=== PATIENT | male | born 1965 | race Caucasian/White ===

== ENCOUNTER 2016-09-03 13:10 | Observation (INO) | payer BC ==
[2016-09-03] MEDS ORDERED: Sodium Chloride 0.9% 10 ML Syringe FLUSH PRN (13:24)
[2016-09-03] MEDS ORDERED: Sodium Chloride 0.9% 1,000 ML IV ONE (13:24)
[2016-09-03] MEDS ORDERED: Sodium Chloride 0.9% 2.5 ML Syringe FLUSH PRN (13:24)
[2016-09-03] MEDS ORDERED: Pantoprazole 40 MG Vial IVPUSH ONE (13:24)
--- NOTE | 2016-09-03 13:27 | EDM.PDOC ---
ED HISTORY OF PRESENT ILLNESS - General Chief Complaint: Cardiovascular Problem Stated Complaint: HEART ISSUES/DIZZINESS Time Seen by Provider: 09/03/16 13:15 - History of Present Illness INITIAL COMMENTS - FREE TEXT/NARRATIVE: HISTORY AND PHYSICAL: History of present illness: The patient is a 51-year-old male with a history of hypertension hypercholesterolemia who had a angioplasty and stent June 15, 2016 and has since followed up with at [facility] and is currently on Effient and presents with complaints of right shoulder pain and has been on and off for several months and lightheadedness that started yesterday. The patient states he is not here for his shoulder/right upper chest pain he is here for the lightheadedness because he has felt like he wanted to pass out. He states it comes and goes and started yesterday afternoon. He has no chest pain with or abdominal pain cough runny nose shortness of breath and has been eating and drinking normally. The patient's says that today he had an episode where he got so lightheaded that he fell to the ground but did not pass out or black out and the patient denies any pain or trauma from that episode. He denies any head neck or back pain. According to the he takes a handful of Tums every day But he is not been evaluated from a GI perspective. The patient does tell me that he had 3 tarry pasty stools yesterday without blood but he is never had those before and did not have that the day before. The patient that was drained home that he uses as needed for his typical chest pain which is midsternal but he has not used that for a week. He does not currently have chest pain like his typical anginal chest pain. Patient denies any abdominal pain or nausea at this time and has no back pain Review of systems: As per history of present illness and below otherwise all systems reviewed and negative. Past medical history: As per history of present illness and as reviewed below otherwise noncontributory. Surgical history: As per history of present illness and as reviewed below otherwise noncontributory. Social history: No reported history of drug or alcohol abuse. Family history: As per history of present illness and as reviewed below otherwise noncontributory. Physical exam: General: Well-developed well-nourished male who is not toxic speaking clearly and easily in ED and vital signs have been reviewed by me JJ: Atraumatic, normocephalic, pupils reactive, negative for conjunctival pallor or scleral icterus, mucous membranes moist, throat clear, neck supple, nontender, trachea midline. Lungs: Clear to auscultation, breath sounds equal bilaterally, chest nontender. Heart: S1S2, regular, negative for clicks, rubs, or JVD. Abdomen: Soft, nondistended, nontender. Negative for masses or hepatosplenomegaly. Negative for costovertebral tenderness. Pelvis: Stable nontender. Genitourinary: Deferred. Rectal: Normal tone no masses stool is black and tarry in the vault and as right leaf heme positive Extremities: Atraumatic, negative for cords or calf pain. Neurovascular unremarkable. Neuro: Awake, alert, oriented. Cranial nerves II through XII unremarkable. Cerebellum unremarkable. Motor and sensory unremarkable throughout. Exam nonfocal. Diagnostics: EKG CBC CMP INR type and screen troponin chest x-ray Therapeutics: IV O2 monitor IV fluids Protonix bolus and drip 1225: This case was discussed with Dr. Castro and Dr. Castillo and they've accepted the patient for admission 1445: I discussed with the patient and at bedside all testing results and care plan for a Protonix drip and admission to the hospital and they are agreeable. Patient overall looks improved and feels better Impression: Upper GI bleed with history of Effient use, recent PTCA with stent [place] stable Definitive disposition and diagnosis as appropriate pending reevaluation and review of above. - Related Data Allergies/ADRs: Allergies Allergy/AdvReac Type Severity Reaction Status Date / Time No Known Allergies Allergy Verified 09/03/16 13:23 Home Meds: Home Meds Aspirin 1 tab PO DAILY 09/03/16 [History] Lisinopril 1 tab PO DAILY 09/03/16 [History] Metoprolol Succinate [Toprol XL] 1 tab PO DAILY 09/03/16 [History] Nitroglycerin [Nitrostat] 1 tab SL ASDIRECTED 09/03/16 [History] Prasugrel HCl [Effient] 1 tab PO DAILY 09/03/16 [History] atorvaSTATin [Lipitor] 1 tab PO DAILY 09/03/16 [History] Past Medical History Cardiovascular History: Reports: Hypertension - Past Surgical History Musculoskeletal Surgical History: Reports: Other (see below) Other Musculoskeletal Surgeries/Procedures:: bicep repair Social & Family History - Family History Family Medical History: Noncontributory - Tobacco Use Smoking Status *Q: Former Smoker Years of Tobacco use: 20 Packs/Tins Daily: 1 - Alcohol Use Days Per Week of Alcohol Use: 1 Number of Drinks Per Day: 6 Total Drinks Per Week: 6 - Recreational Drug Use Recreational Drug Use: No Drug Use in Last 12 Months: No ED ROS GENERAL - Review of Systems Review Of Systems: ROS reveals no pertinent complaints other than HPI. ED EXAM, GENERAL - Physical Exam Exam: See Below (See dictation) Course - Vital Signs Last Recorded V/S: Last Vital Signs Temp 36.9 C 09/03/16 13:20 Pulse 92 09/03/16 14:20 Resp 16 09/03/16 14:20 BP 104/65 09/03/16 14:20 Pulse Ox 97 09/03/16 14:20 - Orders/Labs/Meds Orders: Active Orders 24 hr Category Date Time Status Patient Status [ADT] Stat ADT 09/03/16 14:44 Ordered Cardiac Monitoring [RC] . DIRECTED Care 09/03/16 13:23 Active EKG Documentation Completion [RC] STAT Care 09/03/16 13:23 Active Fecal Occult Blood Collection [RC] ASDIRECTED Care 09/03/16 14:15 Active Oxygen Therapy, ED [RC] ASDIRECTED Care 09/03/16 13:23 Active Pulse Oximetry [RC] ASDIRECTED Care 09/03/16 13:23 Active Pantoprazole [Protonix IV] 80 mg Med 09/03/16 13:30 Active Sodium Chloride 0.9% [Normal Saline] 100 ml IV .Continuous Sodium Chloride 0.9% [Saline Flush] Med 09/03/16 13:24 Active 10 ml FLUSH ASDIRECTED PRN Sodium Chloride 0.9% [Saline Flush] Med 09/03/16 13:24 Active 2.5 ml FLUSH ASDIRECTED PRN Saline Lock Insert [OM.PC] Stat Oth 09/03/16 13:23 Ordered Medication Orders Pantoprazole Sodium 80 mg/ (Sodium Chloride) 100 mls @ 10 mls/hr IV .Continuous ULISSES Last Admin: 09/03/16 14:26 Dose: 10 mls/hr Sodium Chloride (Saline Flush) 10 ml FLUSH ASDIRECTED PRN PRN Reason: Keep Vein Open Sodium Chloride (Saline Flush) 2.5 ml FLUSH ASDIRECTED PRN PRN Reason: Keep Vein Open Labs: Laboratory Tests 09/03/16 09/03/16 09/03/16 Range/Units 13:35 13:35 13:35 WBC 7.74 (4.0-11.0) K/uL RBC 4.01 L (4.50-5.90) M/uL Hgb 12.1 L (13.0-17.0) g/dL Hct 35.1 L (38.0-50.0) % MCV 87.5 (80.0-98.0) fL MCH 30.2 (27.0-32.0) pg MCHC 34.5 (31.0-37.0) g/dL RDW Std Deviation 41.5 (28.0-62.0) fl RDW Coeff of David 13 (11.0-15.0) % Plt Count 233 (150-400) K/uL MPV 9.50 (7.40-12.00) fL Neut % (Auto) 57.9 (48.0-80.0) % Lymph % (Auto) 33.6 (16.0-40.0) % [place] % (Auto) 5.2 (0.0-15.0) % Eos % (Auto) 3.0 (0.0-7.0) % Baso % (Auto) 0.3 (0.0-1.5) % Neut # 4.5 (1.4-5.7) K/uL Lymph # 2.6 H (0.6-2.4) K/uL [place] # 0.4 (0.0-0.8) K/uL Eos # 0.2 (0.0-0.7) K/uL Baso # 0.0 (0.0-0.1) K/uL Nucleated RBC % 0.0 /100WBC Nucleated RBCs # 0 K/uL INR 0.98 (0.86-1.11) Sodium 139 (136-146) mmol/L Potassium 4.5 (3.5-5.1) mmol/L Chloride 108 (98-110) mmol/L Carbon Dioxide 23 (21-31) mmol/L BUN 39 H (6.0-23.0) mg/dL Creatinine 1.0 (0.6-1.5) mg/dL Est Cr Clr Drug Dosing 93.77 mL/min Estimated GFR (MDRD) > 60.0 ml/min Glucose 101 (60-110) mg/dL Calcium 9.1 (8.8-10.8) mg/dL Total Bilirubin 1.0 (0.1-1.5) mg/dL AST 20 (5-40) IU/L ALT 37 (8-54) IU/L Alkaline Phosphatase 66 (40-150) Troponin I (0.0-0.29) NG/ML Total Protein 6.9 (6.0-8.0) g/dL Albumin 3.9 (3.5-5.0) g/dL Globulin 3.0 (2.0-3.5) g/dL Albumin/Globulin Ratio 1.3 (1.3-2.8) Blood Type Antibody Screen 09/03/16 09/03/16 Range/Units 13:35 13:35 WBC (4.0-11.0) K/uL RBC (4.50-5.90) M/uL Hgb (13.0-17.0) g/dL Hct (38.0-50.0) % MCV (80.0-98.0) fL MCH (27.0-32.0) pg MCHC (31.0-37.0) g/dL RDW Std Deviation (28.0-62.0) fl RDW Coeff of David (11.0-15.0) % Plt Count (150-400) K/uL MPV (7.40-12.00) fL Neut % (Auto) (48.0-80.0) % Lymph % (Auto) (16.0-40.0) % [place] % (Auto) (0.0-15.0) % Eos % (Auto) (0.0-7.0) % Baso % (Auto) (0.0-1.5) % Neut # (1.4-5.7) K/uL Lymph # (0.6-2.4) K/uL [place] # (0.0-0.8) K/uL Eos # (0.0-0.7) K/uL Baso # (0.0-0.1) K/uL Nucleated RBC % /100WBC Nucleated RBCs # K/uL INR (0.86-1.11) Sodium (136-146) mmol/L Potassium (3.5-5.1) mmol/L Chloride (98-110) mmol/L Carbon Dioxide (21-31) mmol/L BUN (6.0-23.0) mg/dL Creatinine (0.6-1.5) mg/dL Est Cr Clr Drug Dosing mL/min Estimated GFR (MDRD) ml/min Glucose (60-110) mg/dL Calcium (8.8-10.8) mg/dL Total Bilirubin (0.1-1.5) mg/dL AST (5-40) IU/L ALT (8-54) IU/L Alkaline Phosphatase (40-150) Troponin I < 0.10 (0.0-0.29) NG/ML Total Protein (6.0-8.0) g/dL Albumin (3.5-5.0) g/dL Globulin (2.0-3.5) g/dL Albumin/Globulin Ratio (1.3-2.8) Blood Type A POSITIVE Antibody Screen NEGATIVE Meds: Medications Generic Name Dose Route Start Last Admin Trade Name Freq PRN Reason Stop Dose Admin Pantoprazole Sodium 80 mg/ 100 mls @ 10 mls/hr 09/03/16 13:30 09/03/16 14:26 Sodium Chloride IV 10 mls/hr .Continuous ULISSES Administration Sodium Chloride 10 ml 09/03/16 13:24 Saline Flush FLUSH ASDIRECTED PRN Keep Vein Open Sodium Chloride 2.5 ml 09/03/16 13:24 Saline Flush FLUSH ASDIRECTED PRN Keep Vein Open Discontinued Medications Generic Name Dose Route Start Last Admin Trade Name Freq PRN Reason Stop Dose Admin Sodium Chloride 1,000 mls @ 999 mls/hr 09/03/16 13:24 09/03/16 14:05 Normal Saline IV 09/03/16 14:24 999 mls/hr STAT ONE Administration Pantoprazole Sodium 80 mg 09/03/16 13:24 09/03/16 14:09 Protonix Iv IVPUSH 09/03/16 13:25 80 mg .BOLUS ONE Administration Departure - Departure Time of Disposition: 14:51 Disposition: Admitted As Inpatient 64 Condition: good Clinical Impression: Upper GI bleed Forms: ED Department Discharge - My Orders Last 24 Hours: My Active Orders 09/03/16 13:23 Cardiac Monitoring [RC] . DIRECTED EKG Documentation Completion [RC] STAT Oxygen Therapy, ED [RC] ASDIRECTED Pulse Oximetry [RC] ASDIRECTED Saline Lock Insert [OM.PC] Stat 09/03/16 13:24 Sodium Chloride 0.9% [Saline Flush] 10 ml FLUSH ASDIRECTED PRN Sodium Chloride 0.9% [Saline Flush] 2.5 ml FLUSH ASDIRECTED PRN 09/03/16 13:30 Pantoprazole [Protonix IV] 80 mg Sodium Chloride 0.9% [Normal Saline] 100 ml IV .Continuous 09/03/16 14:15 Fecal Occult Blood Collection [RC] ASDIRECTED 09/03/16 14:44 Patient Status [ADT] Stat - Assessment/Plan Last 24 Hours: My Active Orders 09/03/16 13:23 Cardiac Monitoring [RC] . DIRECTED EKG Documentation Completion [RC] STAT Oxygen Therapy, ED [RC] ASDIRECTED Pulse Oximetry [RC] ASDIRECTED Saline Lock Insert [OM.PC] Stat 09/03/16 13:24 Sodium Chloride 0.9% [Saline Flush] 10 ml FLUSH ASDIRECTED PRN Sodium Chloride 0.9% [Saline Flush] 2.5 ml FLUSH ASDIRECTED PRN 09/03/16 13:30 Pantoprazole [Protonix IV] 80 mg Sodium Chloride 0.9% [Normal Saline] 100 ml IV .Continuous 09/03/16 14:15 Fecal Occult Blood Collection [RC] ASDIRECTED 09/03/16 14:44 Patient Status [ADT] Stat
[2016-09-03 14:19] LABS: CHLORIDE,CL 108 mmol/L (98-110); SODIUM,NA 139 mmol/L (136-146)
--- NOTE | 2016-09-03 14:20 | CR ---
EXAMINATION: Portable chest radiograph. HISTORY: Shortness of breath. FINDINGS: The trachea is midline. The cardiomediastinal silhouette is within normal limits. No pulmonary infil trates, effusions or pneumothorax. Small round opacities project over the lung bases, likely nipple shadows. Osseous structures appear unremarkable. IMPRESSION: No acute cardiopulmonary process.
[2016-09-03] MEDS: Pantoprazole 80 MG in Sodium Chloride 0.9% 100 ML IV SCH (14:26)
[2016-09-03] MEDS ORDERED: Ondansetron 4 MG/2 ML SDV IVPUSH PRN (15:26)
[2016-09-03] MEDS ORDERED: Morphine 2 MG/ML Syringe IVPUSH PRN (15:26)
[2016-09-03] MEDS ORDERED: Acetaminophen 325 MG Tab PO PRN (15:26)
[2016-09-03] MEDS ORDERED: Nitroglycerin 0.4 MG Tab.SL SL PRN (15:45)
[2016-09-03] MEDS: Sodium Chloride 0.9% 1,000 ML IV SCH (15:55)
--- NOTE | 2016-09-03 16:10 | PCM.HP ---
H&P History of Present Illness - General Date of Service: 09/03/16 Admit Problem/Dx: Admission Diagnosis/Problem Admission Diagnosis/Problem Bleeding Source of Information: Patient, Family - History of Present Illness Initial Comments - Free Text/Narative: 51 yo male admitted on 09/03/16 with shortness of breath and hemoccult positive stool with pmh of CAD with stents placed , HTN, and hyperlipidemia. Patient had angioplasty and stent on June 15, [address] Liz at [facility] in [place] and is currenlty on Effient. He presented to ED on 09/03/16 with complaints of on and off several months of lightheadedness and had a near syncopal episode today. This lightheadness "comes and goes" and worsed yesterday afternoon. He reports no associated chest pain, palpitiations, nausea , or diaphoresis. He does report two days of dark tarry stools and has been taking "hand fulls" of Tums for heart burn. He has had heartburn in the past intermittently but does not take any medicaiton for it . His near syncopal episoded happened today in which he almost fell to the ground but did not pass out or black out. He did not hit his head and was able to slowly sit down. Patient has never had a colonoscopy or EGD. He does complain of some epigastric tenderness. Patinet did have a cold last week which has resolved. He denies any nausea, vomiting, diarrhea, sinus congesting, ear pain, throat pain, or other signs of systemic infection. In ED, CXR was unremarkable. Labs showed mild anemia with Hgb of 12.1 (in May 2016 was 18 however) and increased BUN to 39. EKG showed no acute ischemic changes. He was given IV Protonix 80 mg, 2 mg Morpine, and 1 bag of NS. Patient will be admitted for suspected upper GI Bleed and surgery consulted. - Related Data Allergies/Adverse Reactions: Allergies Allergy/AdvReac Type Severity Reaction Status Date / Time No Known Allergies Allergy Verified 09/03/16 13:23 Home Medications: Home Meds Aspirin 1 tab PO DAILY 09/03/16 [History] Lisinopril 1 tab PO DAILY 09/03/16 [History] Metoprolol Succinate [Toprol XL] 1 tab PO DAILY 09/03/16 [History] Nitroglycerin [Nitrostat] 1 tab SL ASDIRECTED 09/03/16 [History] Prasugrel HCl [Effient] 1 tab PO DAILY 09/03/16 [History] atorvaSTATin [Lipitor] 1 tab PO DAILY 09/03/16 [History] Past Medical History - Past Health History Medical/Surgical History: Denies Medical/Surgical History Cardiovascular History: Reports: Hypertension - Past Surgical History Musculoskeletal Surgical History: Reports: Other (see below) Other Musculoskeletal Surgeries/Procedures:: bicep repair Social & Family History - Family History Family Medical History: Noncontributory - Tobacco Use Smoking Status *Q: Never Smoker Years of Tobacco use: 20 Packs/Tins Daily: 1 Second Hand Smoke Exposure: No - Alcohol Use Days Per Week of Alcohol Use: 1 Number of Drinks Per Day: 6 Total Drinks Per Week: 6 - Recreational Drug Use Recreational Drug Use: No Drug Use in Last 12 Months: No H&P Review of Systems - Review of Systems: Review Of Systems: See Below General: Reports: weakness, fatigue. Denies: fever, chills, malaise HEENT: Denies: ear pain, headaches, sore throat Pulmonary: Reports: Shortness of Breath. Denies: Wheezing, Pleuritic Chest Pain , Hemoptysis Cardiovascular: Denies: chest pain, edema Gastrointestinal: Reports: Black stool. Denies: Abdominal pain, Bloody stool, Diarrhea Genitourinary: Denies: dysuria, hematuria Musculoskeletal: Reports: shoulder pain. Denies: neck pain, leg pain Skin: Denies: cyanosis Psychiatric: Denies: confusion Neurological: Denies: Confusion Hematologic/Lymphatic: Reports: easy bleeding, easy bruising. Denies: anemia Immunologic: Denies: anaphylaxis Exam - Exam Exam: See Below - Vital Signs Vital Signs: Last Vital Signs Temp 36.3 C 09/03/16 15:23 Pulse 89 09/03/16 15:23 Resp 16 09/03/16 15:23 BP 107/70 09/03/16 15:23 Pulse Ox 98 09/03/16 15:23 Weight: 84.141 kg - Exam Quality Assessment: DVT prophylaxis General: alert, oriented, 4 HEENT: Conjunctiva clear, EACs clear, EOMI, Hearing intact, Mucosa moist & pink , Nares patent, Normal nasal septum, Posterior pharynx clear, PERRLA Neck: supple, trachea midline, 2 Lungs: Clear to auscultation, Normal respiratory effort Cardiovascular: regular rate, regular rhythm, normal S1, normal S2, systolic murmur Abdomen: normal bowel sounds, soft, tenderness (epigastric) Back Exam: normal inspection Extremities: normal inspection, normal pulses Peripheral Pulses: 2+: radial (L), radial (R), posterior tibial (L), posterior tibial (R), dorsalis pedis (L), dorsalis pedis (R) Skin: warm, dry, intact Neurological: cranial nerves intact, reflexes equal bilateral Neuro Extensive - Mental Status: alert, oriented x3, normal mood/affect, normal cognition Neuro Extensive - Motor, Sensory, Reflexes: CN II-XII intact Psychiatric: alert, normal affect, normal mood - Patient Data Result Diagrams: 09/03/16 13:35 09/03/16 13:35 *Q Meaningful Use (ADM) - VTE *Q VTE Criteria *Q: - Stroke *Q Stroke Criteria *Q: - AMI *Q AMI Criteria *Q: - Problem List (1) Coronary artery disease SNOMED Code(s): 17065093 ICD Code: I25.10 - ATHSCL HEART DISEASE OF [place] CORONARY ARTERY W/O ANG PCTRS Status: Acute Current Visit: Yes Qualifiers: Coronary Disease-Associated Artery/Lesion type: unspecified vessel or lesion type [place] vs. transplanted heart: [place] heart Associated angina: with stable angina Qualified Code(s): I25.118 - Atherosclerotic heart disease of [place] coronary artery with other forms of angina pectoris (2) Hypertension SNOMED Code(s): 25200052 ICD Code: I10 - ESSENTIAL (PRIMARY) HYPERTENSION Status: Chronic Priority : Medium Current Visit: Yes Qualifiers: Hypertension type: essential hypertension Qualified Code(s): I10 - Essential (primary) hypertension (3) Upper GI bleed SNOMED Code(s): 93975670 ICD Code: K92.2 - GASTROINTESTINAL HEMORRHAGE, UNSPECIFIED Status: Acute Priority: High Current Visit: Yes Problem List Initiated/Reviewed/Updated: Yes Orders Last 24hrs: Active Orders 24 hr Category Date Time Status Patient Status [ADT] Routine ADT 09/03/16 15:26 Ordered Antiembolic Devices [RC] PER UNIT ROUTINE Care 09/03/16 15:34 Ordered Oxygen Therapy [RC] PRN Care 09/03/16 15:26 Ordered Up With Assistance [RC] ASDIRECTED Care 09/03/16 15:26 Ordered VTE/DVT Education [RC] PER UNIT ROUTINE Care 09/03/16 15:26 Ordered Vital Signs [RC] Q4H Care 09/03/16 15:26 Ordered Nothing per Oral Now Diet [DIET] Diet 09/03/16 Dinner Ordered BASIC METABOLIC PANEL,BMP [CHEM] DAILY Lab 09/04/16 05:00 Ordered BASIC METABOLIC PANEL,BMP [CHEM] DAILY Lab 09/05/16 05:00 Ordered BASIC METABOLIC PANEL,BMP [CHEM] DAILY Lab 09/06/16 05:00 Ordered BASIC METABOLIC PANEL,BMP [CHEM] DAILY Lab 09/07/16 05:00 Ordered CBC W/O DIFF,HEMOGRAM [HEME] DAILY Lab 09/04/16 05:00 Ordered CBC W/O DIFF,HEMOGRAM [HEME] DAILY Lab 09/05/16 05:00 Ordered CBC W/O DIFF,HEMOGRAM [HEME] DAILY Lab 09/06/16 05:00 Ordered CBC W/O DIFF,HEMOGRAM [HEME] DAILY Lab 09/07/16 05:00 Ordered Acetaminophen [Tylenol] Med 09/03/16 15:26 Ordered 650 mg PO Q4H PRN Aspirin Med 09/04/16 09:00 Ordered 1 tab PO DAILY Morphine Med 09/03/16 15:26 Ordered 2 mg IVPUSH Q2H PRN Nitroglycerin [Nitrostat] Med 09/03/16 15:45 Ordered 1 tab SL ASDIRECTED Ondansetron [Zofran] Med 09/03/16 15:26 Ordered 4 mg IVPUSH Q4H PRN Pantoprazole [Protonix IV] 80 mg Med 09/04/16 15:30 Ordered Sodium Chloride 0.9% [Normal Saline] 100 ml IV Q10H Prasugrel HCl [Effient] Med 09/04/16 09:00 Ordered 1 tab PO DAILY Sodium Chloride 0.9% @ 100 MLS/HR(1,000ml) Med 09/03/16 15:30 Ordered Sodium Chloride 0.9% [Normal Saline] 1,000 ml IV ASDIRECTED atorvaSTATin [Lipitor] Med 09/04/16 09:00 Ordered 1 tab PO DAILY Sequential Compression Device [OM.PC] Per Unit Routine Oth 09/03/16 15:31 Ordered Resuscitation Status Routine Resus Stat 09/03/16 15:26 Ordered Medication Orders Acetaminophen (Tylenol) 650 mg PO Q4H PRN PRN Reason: Pain (Mild 1-3)/fever Aspirin (Aspirin) 81 mg PO DAILY [facility] Atorvastatin Calcium (Lipitor) 40 mg PO DAILY [facility] Pantoprazole Sodium 80 mg/ (Sodium Chloride) 100 mls @ 10 mls/hr IV .Continuous [facility] Last Admin: 09/03/16 14:26 Dose: 10 mls/hr Sodium Chloride (Normal Saline) 1,000 mls @ 100 mls/hr IV ASDIRECTED [facility] Last Admin: 09/03/16 15:55 Dose: 100 mls/hr Pantoprazole Sodium 80 mg/ (Sodium Chloride) 100 mls @ 10 mls/hr IV Q10H ULISSES Morphine Sulfate (Morphine) 2 mg IVPUSH Q2H PRN PRN Reason: Pain (severe 7-10) Stop: 09/04/16 15:33 Nitroglycerin (Nitrostat) 0.4 mg SL Q5M PRN PRN Reason: Chest Pain Ondansetron HCl (Zofran) 4 mg IVPUSH Q4H PRN PRN Reason: Nausea Prasugrel 10mg 1 each PO DAILY [facility] Sodium Chloride (Saline Flush) 10 ml FLUSH ASDIRECTED PRN PRN Reason: Keep Vein Open Sodium Chloride (Saline Flush) 2.5 ml FLUSH ASDIRECTED PRN PRN Reason: Keep Vein Open Assessment/Plan Comment:: 51 yo male hemocult positive stool suspected upper GI bleed with pmh of CAD with stent 2015 and hypertension. Upper GI Bleed: Current Hgb 12.1. Will place on 80 mg protonix drip and place NPO. Surgery consulted. Will cont. resus with IVF. CAD with stent: Talked with cardiology in [facility] nurse practioner who recommend not stopping Effient and aspirin secondary to new stent unless life threating GI bleed. Will monitor closely. Patient placed on telemetry and will cont. to monitor. Hypertension: Will hold home BP meds at this time as patient BP is 100's systolic and continue IVF resus. VTE: Active GI bleed SCD's will hold phamacologic management at this time. Dispo: 1-2 days pending.
--- NOTE | 2016-09-03 18:26 | PCM.SN ---
- Free Text/Narrative Note: H-pylori Ag was positive. Talked with Dr. Rubio, surgery, and she is going to plan for endoscopy tomorrow am. Patient hemodynamically stable at this time.
[2016-09-04] MEDS: Pantoprazole 80 MG in Sodium Chloride 0.9% 100 ML IV SCH ×2 (00:25→11:21)
[2016-09-04] MEDS: Sodium Chloride 0.9% 1,000 ML IV SCH (02:08)
[2016-09-04 05:35] LABS: CHLORIDE,CL 112 mmol/L (98-110); SODIUM,NA 139 mmol/L (136-146)
--- NOTE | 2016-09-04 07:24 | PCM.CONS ---
H&P History of Present Illness - General Date of Service: 09/04/16 Admit Problem/Dx: Admission Diagnosis/Problem Admission Diagnosis/Problem Bleeding History Limitations: Reports: No limitations - History of Present Illness Initial Comments - Free Text/Narative: Patient is a 51 yo M who presented with hematochezia. He developed black tarry stools two days ago. He had three bowel movements like this. He subsequently became dizzy and fainted. He denies vomiting blood. He c/o chronic heartburn and reflux (especially at night). He denies any hematemesis. His recentl history is significant for alcoholism and recent coronary stent placement for ischemic rest pain in [facility]. He is on ASA and prasurgel. He denies any ibuprofen use. He was admited to the hospital and his vitals have been stable since. His hgb dropped from 12 to 9 which may be a result of resuccitation as well as his acute bleed. His symptoms have improved and he has had no hematochezia since. - Related Data Allergies/Adverse Reactions: Allergies Allergy/AdvReac Type Severity Reaction Status Date / Time No Known Allergies Allergy Verified 09/03/16 13:23 Home Medications: Home Meds Aspirin 1 tab PO DAILY 09/03/16 [History] Lisinopril 1 tab PO DAILY 09/03/16 [History] Metoprolol Succinate [Toprol XL] 1 tab PO DAILY 09/03/16 [History] Nitroglycerin [Nitrostat] 1 tab SL ASDIRECTED 09/03/16 [History] Prasugrel HCl [Effient] 1 tab PO DAILY 09/03/16 [History] atorvaSTATin [Lipitor] 1 tab PO DAILY 09/03/16 [History] Past Medical History - Past Health History Medical/Surgical History: Denies Medical/Surgical History Cardiovascular History: Reports: Angina, Hypertension, Stents, Syncope - Past Surgical History Musculoskeletal Surgical History: Reports: Other (see below) Other Musculoskeletal Surgeries/Procedures:: bicep repair - History Comment History Comment: Patient had biceps tendon repair on left and several other orthopedic surgeries in the past. Social & Family History - Family History Family Medical History: Noncontributory - Tobacco Use Smoking Status *Q: Never Smoker Years of Tobacco use: 20 Packs/Tins Daily: 1 Second Hand Smoke Exposure: No - Alcohol Use Alcohol Use History: Yes Days Per Week of Alcohol Use: 7 Number of Drinks Per Day: 3 Total Drinks Per Week: 21 Total Drinks Per Week Comment: Patient told me he was a heavy drinker until he had stents placed in his heart. Since then he has cut back but still has 2-3 beers every night. - Recreational Drug Use Recreational Drug Use: No Drug Use in Last 12 Months: No H&P Review of Systems - Review of Systems: Review Of Systems: See Below General: Reports: no symptoms HEENT: Reports: no symptoms Pulmonary: Reports: No Symptoms Cardiovascular: Reports: no symptoms Gastrointestinal: Reports: Black stool Genitourinary: Reports: no symptoms Musculoskeletal: Reports: no symptoms Skin: Reports: no symptoms Psychiatric: Reports: no symptoms Exam - Exam Exam: See Below - Vital Signs Vital Signs: Last Vital Signs Temp 36.8 C 09/04/16 04:00 Pulse 92 09/04/16 04:00 Resp 15 09/04/16 04:00 BP 108/67 09/04/16 04:00 Pulse Ox 91 L 09/04/16 04:00 Weight: 84.141 kg - Exam General: alert, oriented Neck: supple, trachea midline Lungs: Clear to auscultation, Normal respiratory effort Cardiovascular: regular rate, regular rhythm Abdomen: soft Back Exam: normal inspection Extremities: normal inspection - Patient Data Lab Results last 24 hrs: Laboratory Results - last 24 hr 09/04/16 09/04/16 Range/Units 04:49 04:49 WBC 6.78 (4.0-11.0) K/uL RBC 3.19 L (4.50-5.90) M/uL Hgb 9.7 L (13.0-17.0) g/dL Hct 28.2 L (38.0-50.0) % MCV 88.4 (80.0-98.0) fL MCH 30.4 (27.0-32.0) pg MCHC 34.4 (31.0-37.0) g/dL RDW Std Deviation 41.9 (28.0-62.0) fl RDW Coeff of David 13 (11.0-15.0) % Plt Count 195 (150-400) K/uL MPV 9.50 (7.40-12.00) fL Nucleated RBC % 0.0 /100WBC Nucleated RBCs # 0 K/uL Sodium 139 (136-146) mmol/L Potassium 4.4 (3.5-5.1) mmol/L Chloride 112 H (98-110) mmol/L Carbon Dioxide 22 (21-31) mmol/L BUN 26 H (6.0-23.0) mg/dL Creatinine 0.9 (0.6-1.5) mg/dL Est Cr Clr Drug Dosing 104.19 mL/min Estimated GFR (MDRD) > 60.0 ml/min Glucose 87 (60-110) mg/dL Calcium 8.0 L (8.8-10.8) mg/dL Result Diagrams: 09/04/16 04:49 09/04/16 04:49 Consult PN Assessment/Plan POD#: 0 Procedures: Procedures ASSAY OF LIPASE (06/15/16) ASSAY OF TROPONIN QUANT (06/15/16) CARDIAC REHAB/MONITOR (08/09/16) CHEST X-RAY 1 VIEW FRONTAL (06/15/16) COMPLETE CBC W/AUTO DIFF WBC (06/15/16) COMPREHEN METABOLIC PANEL (06/15/16) CREATINE MB FRACTION (06/15/16) ELECTROCARDIOGRAM TRACING (06/15/16) EMERGENCY DEPT VISIT (06/15/16) EMERGENCY DEPT VISIT (03/17/16) EMERGENCY DEPT VISIT (03/10/14) EMERGENCY DEPT VISIT (11/21/13) FLUOROSCOPE EXAM EXTENSIVE (04/08/14) LIPID PANEL (10/13/14) METABOLIC PANEL TOTAL CA (05/11/14) MRI JOINT UPR EXTREM W/O DYE (04/01/14) OT EVALUATION (05/11/14) REPAIR OF RUPTURED TENDON (04/08/14) ROUTINE VENIPUNCTURE (06/15/16) THER/PROPH/DIAG INJ SC/IM (06/15/16) THERAPEUTIC EXERCISES (07/13/14) X-RAY EXAM OF ELBOW (03/31/14) (1) Upper GI bleed SNOMED Code(s): 20786733 Code(s): K92.2 - GASTROINTESTINAL HEMORRHAGE, UNSPECIFIED Priority: High Current Visit: Yes Problem List Initiated/Reviewed/Updated: Yes My Orders last 24 hours: Patient has H. pylori and acute GI bleed. Most likely source is GI. -Consented patient for diagnostic EGD with possible biopsy. Based on the results of this will determine further care. -Continue to keep patient NPO with IVF and serial hemoglobin checks. -Patient will need to abstain from alcohol for a minimum of 2 months. Given his claim that he used to be a heavy drinker I would suggest complete alcohol cessation. -Please contact with any questions or concerns.
[2016-09-04] MEDS ORDERED: Sodium Chloride 0.9% 1,000 ML IV SCH (07:45)
[2016-09-04] MEDS ORDERED: Propofol 200 MG/20 ML SDV ONE (08:26)
[2016-09-04] MEDS ORDERED: Lidocaine 2% 5 ML SDV ONE (08:26)
[2016-09-04] MEDS ORDERED: Midazolam 1 MG/ML 2 ML SDV ONE (08:26)
[2016-09-04] MEDS ORDERED: fentaNYL 100 MCG/2 ML SDV ONE (08:26)
--- NOTE | 2016-09-04 08:26 | PCM.PREANE ---
Preanesthetic Assessment - Anesthesia/Transfusion/Family Hx Anesthesia History: Prior Anesthesia Without Reaction Other Type of Anesthesia Reaction Comment: DENIES ANY PROBLEMS WITH ANESTHESIA Transfusion History: No Prior Transfusion(s) Intubation History: Unknown Additional History: Stenting occurred last month...70%LAD stented, 2 other vessels with obstruction per patient. [place] records reviewed. Has had angina since 2 weeks ago, resolved with rest. - Review of Systems General: No Symptoms Pulmonary: No Symptoms Cardiovascular: Chest Pain, Lightheadedness, Other (stent as recorded above; EKG is abnormal) Gastrointestinal: Melena, Other (Regurgitation and acid pills taken at night prior to chest pain history with exertion) Neurological: No Symptoms - Physical Assessment NPO Status Date: 09/03/16 NPO Status Time: 22:00 O2 Sat by Pulse Oximetry: 91 Respiratory Rate: 15 Vital Signs: Last Vital Signs Temp 98.2 F 09/04/16 04:00 Pulse 92 09/04/16 04:00 Resp 15 09/04/16 04:00 BP 108/67 09/04/16 04:00 Pulse Ox 91 L 09/04/16 04:00 Height: 6 ft Weight: 185 lb 8 oz ASA Class: 3E Mental Status: Alert & Oriented x3 Airway Class: Mallampati = 1 Dentition: Reports: Normal Dentition Thyro-Mental Finger Breadths: 3 Mouth Opening Finger Breadths: 3 ROM/Head Extension: Full Lungs: Clear to auscultation, Normal respiratory effort Cardiovascular: Regular Rate, Irregular Rhythm (noted on auscultation and pulse , single ) - Lab Values: Laboratory Last Values WBC 6.78 K/uL (4.0-11.0) 09/04/16 04:49 RBC 3.19 M/uL (4.50-5.90) L 09/04/16 04:49 Hgb 9.7 g/dL (13.0-17.0) L 09/04/16 04:49 Hct 28.2 % (38.0-50.0) L 09/04/16 04:49 MCV 88.4 fL (80.0-98.0) 09/04/16 04:49 MCH 30.4 pg (27.0-32.0) 09/04/16 04:49 MCHC 34.4 g/dL (31.0-37.0) 09/04/16 04:49 RDW Std Deviation 41.9 fl (28.0-62.0) 09/04/16 04:49 RDW Coeff of David 13 % (11.0-15.0) 09/04/16 04:49 Plt Count 195 K/uL (150-400) 09/04/16 04:49 MPV 9.50 fL (7.40-12.00) 09/04/16 04:49 Neut % (Auto) 57.9 % (48.0-80.0) 09/03/16 13:35 Lymph % (Auto) 33.6 % (16.0-40.0) 09/03/16 13:35 Spink % (Auto) 5.2 % (0.0-15.0) 09/03/16 13:35 Eos % (Auto) 3.0 % (0.0-7.0) 09/03/16 13:35 Baso % (Auto) 0.3 % (0.0-1.5) 09/03/16 13:35 Neut # 4.5 K/uL (1.4-5.7) 09/03/16 13:35 Lymph # 2.6 K/uL (0.6-2.4) H 09/03/16 13:35 Spink # 0.4 K/uL (0.0-0.8) 09/03/16 13:35 Eos # 0.2 K/uL (0.0-0.7) 09/03/16 13:35 Baso # 0.0 K/uL (0.0-0.1) 09/03/16 13:35 Nucleated RBC % 0.0 /100WBC 09/04/16 04:49 Nucleated RBCs # 0 K/uL 09/04/16 04:49 INR 0.98 (0.86-1.11) 09/03/16 13:35 Sodium 139 mmol/L (136-146) 09/04/16 04:49 Potassium 4.4 mmol/L (3.5-5.1) 09/04/16 04:49 Chloride 112 mmol/L (98-110) H 09/04/16 04:49 Carbon Dioxide 22 mmol/L (21-31) 09/04/16 04:49 BUN 26 mg/dL (6.0-23.0) H 09/04/16 04:49 Creatinine 0.9 mg/dL (0.6-1.5) 09/04/16 04:49 Est Cr Clr Drug Dosing 104.19 mL/min 09/04/16 04:49 Estimated GFR (MDRD) > 60.0 ml/min 09/04/16 04:49 Glucose 87 mg/dL (60-110) 09/04/16 04:49 Calcium 8.0 mg/dL (8.8-10.8) L 09/04/16 04:49 Total Bilirubin 1.0 mg/dL (0.1-1.5) 09/03/16 13:35 AST 20 IU/L (5-40) 09/03/16 13:35 ALT 37 IU/L (8-54) 09/03/16 13:35 Alkaline Phosphatase 66 (40-150) 09/03/16 13:35 Troponin I < 0.10 NG/ML (0.0-0.29) 09/03/16 13:35 Total Protein 6.9 g/dL (6.0-8.0) 09/03/16 13:35 Albumin 3.9 g/dL (3.5-5.0) 09/03/16 13:35 Globulin 3.0 g/dL (2.0-3.5) 09/03/16 13:35 Albumin/Globulin Ratio 1.3 (1.3-2.8) 09/03/16 13:35 H. pylori IgG Antibody POSITIVE (NEG) H 09/03/16 13:35 Blood Type A POSITIVE 09/03/16 13:35 Antibody Screen NEGATIVE 09/03/16 13:35 - Allergies Allergies/Adverse Reactions: Allergies Allergy/AdvReac Type Severity Reaction Status Date / Time No Known Allergies Allergy Verified 09/03/16 13:23 - Blood Blood Available: No Product(s) Available: None - Anesthesia Plan Free Text/Narrative:: Recommend oropharynx spray to minimize stimuli - explained to patient. Pre-Op Medication Ordered: None - Acknowledgements Anesthesia Type Planned: MAC Pt an Appropriate Candidate for the Planned Anesthesia: Yes Alternatives and Risks of Anesthesia Discussed w Pt/Guardian: Yes Pt/Guardian Understands and Agrees with Anesthesia Plan: Yes PreAnesthesia Questionnaire - Past Health History Medical/Surgical History: Denies Medical/Surgical History Cardiovascular History: Reports: Angina, Hypertension, Stents, Syncope - Past Surgical History Other Musculoskeletal Surgeries/Procedures:: bicep repair - History Comment History Comment: Patient had biceps tendon repair on left and several other orthopedic surgeries in the past. - SUBSTANCE USE Smoking Status *Q: Never Smoker Tobacco Use Within Last Twelve Months: Smokeless Tobacco Second Hand Smoke Exposure: No Days Per Week of Alcohol Use: 7 Number of Drinks Per Day: 3 Total Drinks Per Week: 21 Recreational Drug Use History: No - HOME MEDS Home Medications: Home Meds Aspirin 1 tab PO DAILY 09/03/16 [History] Lisinopril 1 tab PO DAILY 09/03/16 [History] Metoprolol Succinate [Toprol XL] 1 tab PO DAILY 09/03/16 [History] Nitroglycerin [Nitrostat] 1 tab SL ASDIRECTED 09/03/16 [History] Prasugrel HCl [Effient] 1 tab PO DAILY 09/03/16 [History] atorvaSTATin [Lipitor] 1 tab PO DAILY 09/03/16 [History] - CURRENT (IN HOUSE) MEDS Current Meds: Current Medications Acetaminophen (Tylenol) 650 mg PO Q4H PRN PRN Reason: Pain (Mild 1-3)/fever Aspirin (Aspirin) 81 mg PO DAILY [facility] Last Admin: 09/04/16 08:16 Dose: 81 mg Atorvastatin Calcium (Lipitor) 40 mg PO DAILY [facility] Last Admin: 09/04/16 08:16 Dose: Not Given Pantoprazole Sodium 80 mg/ (Sodium Chloride) 100 mls @ 10 mls/hr IV .Continuous [facility] Last Admin: 09/04/16 00:25 Dose: 10 mls/hr Sodium Chloride (Normal Saline) 1,000 mls @ 150 mls/hr IV ASDIRECTED [facility] Morphine Sulfate (Morphine) 2 mg IVPUSH Q2H PRN PRN Reason: Pain (severe 7-10) Stop: 09/04/16 15:33 Nitroglycerin (Nitrostat) 0.4 mg SL Q5M PRN PRN Reason: Chest Pain Ondansetron HCl (Zofran) 4 mg IVPUSH Q4H PRN PRN Reason: Nausea Prasugrel 10mg 1 each PO DAILY [facility] Last Admin: 09/04/16 08:16 Dose: Not Given Sodium Chloride (Saline Flush) 10 ml FLUSH ASDIRECTED PRN PRN Reason: Keep Vein Open Sodium Chloride (Saline Flush) 2.5 ml FLUSH ASDIRECTED PRN PRN Reason: Keep Vein Open Discontinued Medications Sodium Chloride (Normal Saline) 1,000 mls @ 999 mls/hr IV STAT ONE Stop: 09/03/16 14:24 Last Admin: 09/03/16 14:05 Dose: 999 mls/hr Sodium Chloride (Normal Saline) 1,000 mls @ 150 mls/hr IV ASDIRECTED [facility] Last Admin: 09/04/16 02:08 Dose: 100 mls/hr Pantoprazole Sodium (Protonix Iv) 80 mg IVPUSH .BOLUS ONE Stop: 09/03/16 13:25 Last Admin: 09/03/16 14:09 Dose: 80 mg Preanesthetic Assessment - ANESTHESIA/TRANSFUSION/FAMILY HX Anesthesia/Transfusion History: No Prior Transfusion(s), Prior Anesthesia Other Type of Anesthesia Reaction Comment: DENIES ANY PROBLEMS WITH ANESTHESIA Family History of Anesthesia Reaction: No Intubation History: Unknown - PHYSICAL ASSESSMENT O2 Sat by Pulse Oximetry: 91 RR: 15 Vital Signs: Last Vital Signs Temp 98.2 F 09/04/16 04:00 Pulse 92 09/04/16 04:00 Resp 15 09/04/16 04:00 BP 108/67 09/04/16 04:00 Pulse Ox 91 L 09/04/16 04:00 Height: 6 ft Weight: 185 lb 8 oz - LAB Values: Laboratory Last Values WBC 6.78 K/uL (4.0-11.0) 09/04/16 04:49 RBC 3.19 M/uL (4.50-5.90) L 09/04/16 04:49 Hgb 9.7 g/dL (13.0-17.0) L 09/04/16 04:49 Hct 28.2 % (38.0-50.0) L 09/04/16 04:49 MCV 88.4 fL (80.0-98.0) 09/04/16 04:49 MCH 30.4 pg (27.0-32.0) 09/04/16 04:49 MCHC 34.4 g/dL (31.0-37.0) 09/04/16 04:49 RDW Std Deviation 41.9 fl (28.0-62.0) 09/04/16 04:49 RDW Coeff of David 13 % (11.0-15.0) 09/04/16 04:49 Plt Count 195 K/uL (150-400) 09/04/16 04:49 MPV 9.50 fL (7.40-12.00) 09/04/16 04:49 Neut % (Auto) 57.9 % (48.0-80.0) 09/03/16 13:35 Lymph % (Auto) 33.6 % (16.0-40.0) 09/03/16 13:35 Spink % (Auto) 5.2 % (0.0-15.0) 09/03/16 13:35 Eos % (Auto) 3.0 % (0.0-7.0) 09/03/16 13:35 Baso % (Auto) 0.3 % (0.0-1.5) 09/03/16 13:35 Neut # 4.5 K/uL (1.4-5.7) 09/03/16 13:35 Lymph # 2.6 K/uL (0.6-2.4) H 09/03/16 13:35 Spink # 0.4 K/uL (0.0-0.8) 09/03/16 13:35 Eos # 0.2 K/uL (0.0-0.7) 09/03/16 13:35 Baso # 0.0 K/uL (0.0-0.1) 09/03/16 13:35 Nucleated RBC % 0.0 /100WBC 09/04/16 04:49 Nucleated RBCs # 0 K/uL 09/04/16 04:49 INR 0.98 (0.86-1.11) 09/03/16 13:35 Sodium 139 mmol/L (136-146) 09/04/16 04:49 Potassium 4.4 mmol/L (3.5-5.1) 09/04/16 04:49 Chloride 112 mmol/L (98-110) H 09/04/16 04:49 Carbon Dioxide 22 mmol/L (21-31) 09/04/16 04:49 BUN 26 mg/dL (6.0-23.0) H 09/04/16 04:49 Creatinine 0.9 mg/dL (0.6-1.5) 09/04/16 04:49 Est Cr Clr Drug Dosing 104.19 mL/min 09/04/16 04:49 Estimated GFR (MDRD) > 60.0 ml/min 09/04/16 04:49 Glucose 87 mg/dL (60-110) 09/04/16 04:49 Calcium 8.0 mg/dL (8.8-10.8) L 09/04/16 04:49 Total Bilirubin 1.0 mg/dL (0.1-1.5) 09/03/16 13:35 AST 20 IU/L (5-40) 09/03/16 13:35 ALT 37 IU/L (8-54) 09/03/16 13:35 Alkaline Phosphatase 66 (40-150) 09/03/16 13:35 Troponin I < 0.10 NG/ML (0.0-0.29) 09/03/16 13:35 Total Protein 6.9 g/dL (6.0-8.0) 09/03/16 13:35 Albumin 3.9 g/dL (3.5-5.0) 09/03/16 13:35 Globulin 3.0 g/dL (2.0-3.5) 09/03/16 13:35 Albumin/Globulin Ratio 1.3 (1.3-2.8) 09/03/16 13:35 H. pylori IgG Antibody POSITIVE (NEG) H 09/03/16 13:35 Blood Type A POSITIVE 09/03/16 13:35 Antibody Screen NEGATIVE 09/03/16 13:35 - ALLERGIES Allergies/Adverse Reactions: Allergies Allergy/AdvReac Type Severity Reaction Status Date / Time No Known Allergies Allergy Verified 09/03/16 13:23
[2016-09-04] MEDS ORDERED: Lidocaine 4% Top Soln 50 ML Bottle ONE (08:28)
--- NOTE | 2016-09-04 08:55 | PCM.OPNOTE ---
- General Post-Op/Procedure Note Date of Surgery/Procedure: 09/04/16 Operative Procedure(s): Diagnostic EGD Findings: Type I hiatal hernia with esophagitis Pre Op Diagnosis: GI bleed Post-Op Diagnosis: Hiatal hernia with esophagitis [place]est[place] [facility] [place] Surgeon: Dalia Pardo Condition: Fair Free Text/Narrative:: Intake & Output 09/03/16 09/04/16 09/04/16 22:59 06:59 14:59 Intake Total 0 0 Output Total 0 500 Balance 0 -500
[2016-09-04] MEDS ORDERED: PRASUGREL 10 MG PO SCH (09:00)
[2016-09-04] MEDS ORDERED: atorvaSTATin 40 MG Tab PO SCH (09:00)
[2016-09-04] MEDS ORDERED: Aspirin 81 MG Tab.Chew PO SCH (09:00)
--- NOTE | 2016-09-04 09:20 | PCM.SN ---
- Free Text/Narrative Note: Patient is a 51 yo male with recent GI bleed. Diagnostic EGD revealed Type I hiatal hernia, esophagitis with small area concerning for recent bleed. Recommendations: -Outpatient referral to currency machine operator -Continue with treatment for H. pylori infection. Follow up testing to ensure irradication. Afterwards continue PPI therapy (20 mg BID) until seen by currency machine operator. -Alcohol cessation -Ok to advance diet as tolerated. -Will sign off at this time, but call with any questions or concerns.
--- NOTE | 2016-09-04 09:44 | PCM48HPAN ---
Post Anesthesia Note - EVALUATION WITHIN 48HRS OF ANESTHETIC Vital Signs in Normal Range: Yes Patient Participated in Evaluation: Yes Respiratory Function Stable: Yes Airway Patent: Yes Cardiovascular Function Stable: Yes Hydration Status Stable: Yes Pain Control Satisfactory: Yes Nausea and Vomiting Control Satisfactory: Yes Mental Status Recovered: Yes - COMMENTS/OBSERVATIONS Free Text/Narrative:: at bedside; detailed discussion with surgeon findings occurring. Stable and aware.
--- NOTE | 2016-09-04 09:45 | PCM.POSTAN ---
POST ANESTHESIA ASSESSMENT - MENTAL STATUS Mental Status: alert, oriented - RESPIRATORY Respiratory Status: respiratory rate WNL, airway patent, O2 saturation stable - CARDIOVASCULAR CV Status: pulse rate WNL, blood pressure stable - GASTROINTESTINAL GI Status: no symptoms - POST OP HYDRATION Hydration Status: adequate & stable
--- NOTE | 2016-09-04 10:28 | OR ---
SURGEON: AAMIR EL MD DATE OF PROCEDURE: 09/04/2016 PREOPERATIVE DIAGNOSIS: GI bleed. POSTOPERATIVE DIAGNOSIS: Hiatal hernia, esophagitis, Helicobacter pylori infection. PROCEDURE PERFORMED: Diagnostic EGD. ANESTHESIA: MAC. ENDOSCOPE: Olympus endoscope. COMPLICATIONS: None. INDICATIONS: The patient is a 51-year-old male, who presents with a 1-day history of black tarry stools. He became symptomatic from his GI bleed and passed out. He was admitted to the medicine team. I was consulted regarding possible endoscopic evaluation. The patient had a positive fecal occult blood test in the emergency room and his H. pylori test came back positive. The patient is n.p.o. and on IV PPI therapy. I discussed diagnostic EGD with possible biopsies with the patient. We discussed the fact that he is currently on anti-platelet agents due to a recent cardiac stent placement in May. When I perform the procedure, should I note any area concerning for cancer, I will take biopsies but I will not take routine biopsies for H. pylori given that we already have a positive diagnosis on laboratory evaluation. The patient and I discussed the procedure and expected perioperative outcome. We discussed the risks, including bleeding, infection, or damage to surrounding structures. The patient verbalized understanding and wished to proceed. PROCEDURE IN DETAIL: The patient was brought to the operating room suite and placed in a beach chair position. A time-out was completed verifying the patient's name, age, date of , allergies, and procedure to be performed. A bite block was placed in the patient's mouth and monitored anesthesia care was induced. Once adequate anesthesia was achieved, an endoscope was then passed down into the patient's mouth through the esophagus into the second portion of the duodenum. Upon entering, I noticed some diffuse inflammation in the posterior pharynx of the patient's mouth consistent with his complaints of reflux. The second portion of duodenum appeared normal and I did not notice any evidence of ulceration or inflammation. A picture was taken. The scope was then fully withdrawn while examining the anatomy and integrity of the mucosa of the upper GI tract. The pylorus appeared normal. The stomach itself did not appear acutely inflamed and I did not note any ulceration. A picture was taken of the pylorus and then the scope was retroflexed to allow visualization of the esophageal hiatus. A type 1 hiatal hernia was noted upon retroflexion. The scope was then withdrawn into the esophagus and pictures were taken of the hiatal hernia and lower esophageal sphincter which was located up in the chest. Around the level of the lower esophageal sphincter, there was some punctate areas of inflammation and possible bleeding. No active oozing was noted. Pictures were taken of this. The remainder of the esophagus appeared normal, although there was some slight inflammation along the distal margin in association with the punctate areas around the lower esophageal sphincter. The scope was then withdrawn from the patient and the procedure terminated. The patient tolerated the procedure well and was taken to PACU in stable condition. ENDOSCOPIC DIAGNOSES: Esophagitis, Helicobacter pylori infection, type 1 hiatal hernia. RECOMMENDATIONS: Followup referral with a [employer] payroll consultant in [place], [place]. The patient will also need to have a colonoscopy done at some point in time. Continue PPI therapy. The patient can advance diet as tolerated. Recommend cessation of all alcohol use at this point in time. CASTILLO SHIELDS /[id number]
[2016-09-04 12:05] VITALS: BP 112/63
[2016-09-04] MEDS ORDERED: Pantoprazole 80 MG in Sodium Chloride 0.9% 100 ML IV SCH (15:30)
--- NOTE | 2016-09-04 18:26 | PCM.DCSUM1 ---
<Mich Castro - Last Filed: 09/04/16 18:22> Discharge Summary - Hospital Course HPI Initial Comments: 51 yo male admitted on 09/03/16 with shortness of breath and hemoccult positive stool with pmh of CAD with stents placed , HTN, and hyperlipidemia. Brief History: Patient had angioplasty and stent on June 15, [address] Liz at [facility] in [place] and is currenlty on Effient. He presented to ED on 09/03/16 with complaints of on and off several months of lightheadedness and had a near syncopal episode on day of admission. Lightheadness "comes and goes" and worse the day before admission. He reported no associated chest pain , palpitiations, nausea, or diaphoresis. He did report two days of dark tarry stools and had been taking "hand fulls" of Tums for heart burn. He had heartburn in the past intermittently but did not take any medicaiton for it . His near syncopal episoded happened on day of admission, where he almost fell to the ground but did not pass out or black out. He did not hit his head and was able to slowly sit down. Patient reported that he had never had a colonoscopy or EGD. He did complain of some epigastric tenderness. Grecia did have a cold week before admission which has resolved. He denied any nausea , vomiting, diarrhea, sinus congesting, ear pain, throat pain, or other signs of systemic infection. - Discharge Data Discharge Date: 09/04/16 Discharge Disposition: Home, Self-Care 01 Condition: Good - Discharge Diagnosis/Problem(s) (1) Coronary artery disease SNOMED Code(s): 71182600 ICD Code: I25.10 - ATHSCL HEART DISEASE OF [place] CORONARY ARTERY W/O ANG PCTRS Status: Acute Qualifiers: Coronary Disease-Associated Artery/Lesion type: unspecified vessel or lesion type [place] vs. transplanted heart: [place] heart Associated angina: with stable angina Qualified Code(s): I25.118 - Atherosclerotic heart disease of [place] coronary artery with other forms of angina pectoris (2) Hypertension SNOMED Code(s): 74370057 ICD Code: I10 - ESSENTIAL (PRIMARY) HYPERTENSION Status: Chronic Priority : Medium Qualifiers: Hypertension type: essential hypertension Qualified Code(s): I10 - Essential (primary) hypertension (3) Upper GI bleed SNOMED Code(s): 74946581 ICD Code: K92.2 - GASTROINTESTINAL HEMORRHAGE, UNSPECIFIED Status: Resolved Priority: High - Patient Summary/Data Operative Procedure(s) Performed: Diagnostic EGD Consults: Consultations 09/03/16 17:00 Consult to Physician [CONS] Routine Hospital Course: In ED, CXR was unremarkable. Labs showed mild anemia with Hgb of 12.1 (in May 2016 was 18 however) and increased BUN to 39. EKG showed no acute ischemic changes. He was given IV Protonix 80 mg, 2 mg Morpine, and 1 bag of NS. Patient was admitted for suspected upper GI bleed, started on Protonix drip and surgery was consulted. In addition, the patient's flower arranger, Dr. Gastelum's office was notified and it was confirmed that they recommended not stopping the patient's Effient or aspirin secondary to his new stent unless there was life- threatening GI bleed. Additional patient was placed on telemetry entire stay and had no significant events. On second day of admission patient was taken to the operating room by Dr. Kilgore , surgeon, for endoscopy. She reported that there was no active bleeding but small punctate areas and a hiatal hernia. She did see one area that was somewhat inflamed and most likely the source of the bleed. Patient was returned from OR in good condition. He was positive for Helicobacter pylori. Patient's hemoglobin on day of discharge was 9. 7 which was largely due to delusional effect from IV fluid resuscitation as there were no upper GI continued bleed. - Patient Instructions Diet: Heart Healthy Diet Activity: As Tolerated Driving: Do Not Drive Showering/Bathing: May Shower Notify Provider of: Fever, Increased Pain, Nausea and/or Vomiting - Discharge Plan Prescriptions/Med Rec: Amoxicillin [Amoxil] 1,000 mg PO BID #56 cap Clarithromycin 500 mg PO BID #28 tablet Pantoprazole [Protonix] 40 mg PO BEDTIME #14 tab.cr Home Medications: Home Meds Aspirin 1 tab PO DAILY 09/03/16 [History] Lisinopril 1 tab PO DAILY 09/03/16 [History] Metoprolol Succinate [Toprol XL] 1 tab PO DAILY 09/03/16 [History] Nitroglycerin [Nitrostat] 1 tab SL ASDIRECTED 09/03/16 [History] Prasugrel HCl [Effient] 1 tab PO DAILY 09/03/16 [History] atorvaSTATin [Lipitor] 1 tab PO DAILY 09/03/16 [History] Amoxicillin [Amoxil] 1,000 mg PO BID #56 cap 09/04/16 [Rx] Clarithromycin 500 mg PO BID #28 tablet 09/04/16 [Rx] Pantoprazole [Protonix] 40 mg PO BEDTIME #14 tab.cr 09/04/16 [Rx] Patient Handouts: Amoxicillin capsules or tablets, Gastrointestinal Bleeding, [id number], Pantoprazole tablets, Clarithromycin tablets Forms: ED Department Discharge Referrals: Ria Sanchez [Ordering Only Provider] - 10/30/16 2:00 pm Sorin Kim DO [Physician] - 09/10/16 11:30 am - Discharge Summary/Plan Comment DC Time >30 min.: Yes Discharge Summary/Plan Comment: 51 yo male admitted on 09/03/16 with shortness of breath and hemoccult positive stool with pmh of CAD with stents placed , HTN, and hyperlipidemia. Patient had angioplasty and stent on June 15, [address] Liz at [facility] in [place] and is currenlty on Effient. He presented to ED on 09/03/16 with complaints of on and off several months of lightheadedness and had a near syncopal episode on day of admission. Lightheadness "comes and goes" and worse the day before admission. He reported no associated chest pain, palpitiations, nausea, or diaphoresis. He did report two days of dark tarry stools and had been taking "hand fulls" of Tums for heart burn. He had heartburn in the past intermittently but did not take any medicaiton for it . His near syncopal episoded happened on day of admission, where he almost fell to the ground but did not pass out or black out. He did not hit his head and was able to slowly sit down. Patient reported that he had never had a colonoscopy or EGD. He did complain of some epigastric tenderness. Patinet did have a cold week before admission which has resolved. He denied any nausea, vomiting, diarrhea, sinus congesting, ear pain, throat pain, or other signs of systemic infection. In ED, CXR was unremarkable. Labs showed mild anemia with Hgb of 12.1 (in May 2016 was 18 however) and increased BUN to 39. EKG showed no acute ischemic changes. He was given IV Protonix 80 mg, 2 mg Morpine, and 1 bag of NS. Patient was admitted for suspected upper GI bleed, started on Protonix drip and surgery was consulted. In addition, the patient's flower arranger, Dr. Gastelum's office was notified and it was confirmed that they recommended not stopping the patient's Effient or aspirin secondary to his new stent unless there was life- threatening GI bleed. Additional patient was placed on telemetry entire stay and had no significant events. On second day of admission patient was taken to the operating room by Dr. Kilgore , surgeon, for endoscopy. She reported that there was no active bleeding but small punctate areas and a hiatal hernia. She did see one area that was somewhat inflamed and most likely the source of the bleed. Patient was returned from OR in good condition. He was positive for Helicobacter pylori. Patient's hemoglobin on day of discharge was 9. 7 which was largely due to delusional effect from IV fluid resuscitation as there were no upper GI continued bleed. Patient was discharged in good condition with a followup appointment with his PCP, Dr. Kim, as well as a GI specialist in [place] to discuss possible options secondary to his antiplatelet medications for his stent and possible interaction with proton pump inhibitors in the future. He was discharged on triple antibiotic therapy for H. pylori including amoxicillin, Protonix, and clarithromycin for 14 days. It is recommended that patient be retested after finishing his triple therapy for H-pylori eradication and should remain on a PPI for an extended amount of time. Patient was instructed to return to ED if he had any new or worsening symptoms. - General Info Date of Service: 09/04/16 Admission Dx/Problem (Free Text: Admission Diagnosis/Problem Admission Diagnosis/Problem Bleeding Subjective Update: Doing well. No longer light headed. No further episodes of black tarry stools. No BM overnight. No complaints. Functional Status: Reports: pain controlled - Review of Systems General: Reports: Weakness, Fatigue, Appetite. Denies: Fever HEENT: Denies: headaches, sore throat Pulmonary: Denies: shortness of breath, hemoptysis, wheezing Cardiovascular: Denies: Chest Pain, Palpitations, Edema Gastrointestinal: Denies: Abdominal pain, Diarrhea, Hematochezia, Melena Genitourinary: Denies: dysuria, hematuria Musculoskeletal: Denies: neck pain, leg pain Skin: Denies: cyanosis Neurological: Denies: Confusion, Dizziness Psychiatric: Denies: confusion - Patient Data Vitals - Most Recent: Last Vital Signs Temp 36.7 C 09/04/16 11:00 Pulse 73 09/04/16 11:00 Resp 16 09/04/16 11:00 BP 112/63 09/04/16 11:00 Pulse Ox 97 09/04/16 11:00 Weight - Most Recent: 84.141 kg I&O - Last 24 hours: Intake & Output 09/04/16 09/04/16 09/04/16 06:59 14:59 22:59 Intake Total 0 450 Output Total 500 650 Balance -500 -200 Lab Results - Last 24 hrs: Laboratory Results - last 24 hr 09/04/16 09/04/16 Range/Units 04:49 04:49 WBC 6.78 (4.0-11.0) K/uL RBC 3.19 L (4.50-5.90) M/uL Hgb 9.7 L (13.0-17.0) g/dL Hct 28.2 L (38.0-50.0) % MCV 88.4 (80.0-98.0) fL MCH 30.4 (27.0-32.0) pg MCHC 34.4 (31.0-37.0) g/dL RDW Std Deviation 41.9 (28.0-62.0) fl RDW Coeff of David 13 (11.0-15.0) % Plt Count 195 (150-400) K/uL MPV 9.50 (7.40-12.00) fL Nucleated RBC % 0.0 /100WBC Nucleated RBCs # 0 K/uL Sodium 139 (136-146) mmol/L Potassium 4.4 (3.5-5.1) mmol/L Chloride 112 H (98-110) mmol/L Carbon Dioxide 22 (21-31) mmol/L BUN 26 H (6.0-23.0) mg/dL Creatinine 0.9 (0.6-1.5) mg/dL Est Cr Clr Drug Dosing 104.19 mL/min Estimated GFR (MDRD) > 60.0 ml/min Glucose 87 (60-110) mg/dL Calcium 8.0 L (8.8-10.8) mg/dL Med Orders - Current: Current Medications Discontinued Medications Acetaminophen (Tylenol) 650 mg PO Q4H PRN PRN Reason: Pain (Mild 1-3)/fever Aspirin (Aspirin) 81 mg PO DAILY [facility] Last Admin: 09/04/16 08:16 Dose: 81 mg Atorvastatin Calcium (Lipitor) 40 mg PO DAILY [facility] Last Admin: 09/04/16 08:16 Dose: Not Given Fentanyl (Sublimaze) Confirm Administered Dose 100 mcg .ROUTE .STK-MED ONE Stop: 09/04/16 08:27 Sodium Chloride (Normal Saline) 1,000 mls @ 999 mls/hr IV STAT ONE Stop: 09/03/16 14:24 Last Admin: 09/03/16 14:05 Dose: 999 mls/hr Pantoprazole Sodium 80 mg/ (Sodium Chloride) 100 mls @ 10 mls/hr IV .Continuous [facility] Last Admin: 09/04/16 11:21 Dose: 10 mls/hr Sodium Chloride (Normal Saline) 1,000 mls @ 150 mls/hr IV ASDIRECTED [facility] Last Admin: 09/04/16 02:08 Dose: 100 mls/hr Sodium Chloride (Normal Saline) 1,000 mls @ 150 mls/hr IV ASDIRECTED [facility] Last Admin: 09/04/16 10:46 Dose: 150 mls/hr Lidocaine (Xylocaine-Mpf 2%) Confirm Administered Dose 5 ml .ROUTE .STK-MED ONE Stop: 09/04/16 08:27 Lidocaine HCl (Xylocaine 4% Top Soln) Confirm Administered Dose 50 ml .ROUTE .STK-MED ONE Stop: 09/04/16 08:29 Midazolam HCl (Versed 1 Mg/Ml) Confirm Administered Dose 2 mg .ROUTE .STK-MED ONE Stop: 09/04/16 08:27 Morphine Sulfate (Morphine) 2 mg IVPUSH Q2H PRN PRN Reason: Pain (severe 7-10) Stop: 09/04/16 15:33 Nitroglycerin (Nitrostat) 0.4 mg SL Q5M PRN PRN Reason: Chest Pain Ondansetron HCl (Zofran) 4 mg IVPUSH Q4H PRN PRN Reason: Nausea Pantoprazole Sodium (Protonix Iv) 80 mg IVPUSH .BOLUS ONE Stop: 09/03/16 13:25 Last Admin: 09/03/16 14:09 Dose: 80 mg Prasugrel 10mg 1 each PO DAILY [facility] Last Admin: 09/04/16 08:16 Dose: Not Given Propofol (Diprivan 20 Ml) Confirm Administered Dose 200 mg .ROUTE .STK-MED ONE Stop: 09/04/16 08:27 Sodium Chloride (Saline Flush) 10 ml FLUSH ASDIRECTED PRN PRN Reason: Keep Vein Open Sodium Chloride (Saline Flush) 2.5 ml FLUSH ASDIRECTED PRN PRN Reason: Keep Vein Open - Exam Quality Assessment: Reports: DVT prophylaxis General: Reports: alert, oriented, cooperative, no acute distress HEENT: Reports: Pupils equal, Pupils reactive, EOMI, Mucous membr. moist/pink Neck: Reports: supple, trachea midline, no JVD Lungs: Reports: Clear to auscultation, Normal respiratory effort Cardiovascular: Reports: Regular Rate, Regular Rhythm Abdomen: Reports: bowel sounds present, soft, no tenderness, no distension Extremities: Reports: no edema, normal pulses, no tenderness/swelling, no calf tenderness Skin: Reports: warm, dry, intact Neurological: Reports: no new focal deficit Psy/Mental Status: Reports: alert, normal affect, normal mood *Q Meaningful Use (DIS) - VTE *Q VTE Criteria *Q: - Stroke *Q Stroke Criteria *Q: - AMI *Q AMI Criteria *Q: <Herbert Castillo - Last Filed: 09/06/16 20:00> Discharge Summary - Patient Summary/Data Consults: Consultations 09/03/16 17:00 Consult to Physician [CONS] Routine - Patient Data Vitals - Most Recent: Last Vital Signs Temp 36.7 C 09/04/16 11:00 Pulse 73 09/04/16 11:00 Resp 16 09/04/16 11:00 BP 112/63 09/04/16 11:00 Pulse Ox 97 09/04/16 11:00 Med Orders - Current: Current Medications Discontinued Medications Acetaminophen (Tylenol) 650 mg PO Q4H PRN PRN Reason: Pain (Mild 1-3)/fever Aspirin (Aspirin) 81 mg PO DAILY [facility] Last Admin: 09/04/16 08:16 Dose: 81 mg Atorvastatin Calcium (Lipitor) 40 mg PO DAILY [facility] Last Admin: 09/04/16 08:16 Dose: Not Given Fentanyl (Sublimaze) Confirm Administered Dose 100 mcg .ROUTE .STK-MED ONE Stop: 09/04/16 08:27 Sodium Chloride (Normal Saline) 1,000 mls @ 999 mls/hr IV STAT ONE Stop: 09/03/16 14:24 Last Admin: 09/03/16 14:05 Dose: 999 mls/hr Pantoprazole Sodium 80 mg/ (Sodium Chloride) 100 mls @ 10 mls/hr IV .Continuous [facility] Last Admin: 09/04/16 11:21 Dose: 10 mls/hr Sodium Chloride (Normal Saline) 1,000 mls @ 150 mls/hr IV ASDIRECTED [facility] Last Admin: 09/04/16 02:08 Dose: 100 mls/hr Sodium Chloride (Normal Saline) 1,000 mls @ 150 mls/hr IV ASDIRECTED [facility] Last Admin: 09/04/16 10:46 Dose: 150 mls/hr Lidocaine (Xylocaine-Mpf 2%) Confirm Administered Dose 5 ml .ROUTE .STK-MED ONE Stop: 09/04/16 08:27 Lidocaine HCl (Xylocaine 4% Top Soln) Confirm Administered Dose 50 ml .ROUTE .STK-MED ONE Stop: 09/04/16 08:29 Midazolam HCl (Versed 1 Mg/Ml) Confirm Administered Dose 2 mg .ROUTE .STK-MED ONE Stop: 09/04/16 08:27 Morphine Sulfate (Morphine) 2 mg IVPUSH Q2H PRN PRN Reason: Pain (severe 7-10) Stop: 09/04/16 15:33 Nitroglycerin (Nitrostat) 0.4 mg SL Q5M PRN PRN Reason: Chest Pain Ondansetron HCl (Zofran) 4 mg IVPUSH Q4H PRN PRN Reason: Nausea Pantoprazole Sodium (Protonix Iv) 80 mg IVPUSH .BOLUS ONE Stop: 09/03/16 13:25 Last Admin: 09/03/16 14:09 Dose: 80 mg Prasugrel 10mg 1 each PO DAILY [facility] Last Admin: 09/04/16 08:16 Dose: Not Given Propofol (Diprivan 20 Ml) Confirm Administered Dose 200 mg .ROUTE .STK-MED ONE Stop: 09/04/16 08:27 Sodium Chloride (Saline Flush) 10 ml FLUSH ASDIRECTED PRN PRN Reason: Keep Vein Open Sodium Chloride (Saline Flush) 2.5 ml FLUSH ASDIRECTED PRN PRN Reason: Keep Vein Open *Q Meaningful Use (DIS) - VTE *Q VTE Criteria *Q: - Stroke *Q Stroke Criteria *Q: - AMI *Q AMI Criteria *Q: - Free Text/Narrative Note: I have examined the patient. I have discussed findings and treatment plan with resident. I agree with the assessment and plan outlined in the resident's note.
== END 2016-09-04 14:30 | disposition home or self-care (01) ==
LOC: MW.ED 13:10 → INTOOBSV 14:44 → MW.MS 14:44
PROVIDERS: ADMIT Internal Medicine; ATTEND Internal Medicine
PROC: 0DJ08ZZ Inspection of Upper Intestinal Tract, Via Natural or Artificial Opening Endoscopic (ICD-10-PCS; principal; 2016-09-04)
DX: K92.2 Gastrointestinal hemorrhage, unspecified (principal); K20.9 Esophagitis, unspecified; K44.9 Diaphragmatic hernia without obstruction or gangrene; B96.81 Helicobacter pylori [H. pylori] as the cause of diseases classified elsewhere; E78.5 Hyperlipidemia, unspecified; I25.10 Atherosclerotic heart disease of native coronary artery without angina pectoris; I10 Essential (primary) hypertension; Z95.5 Presence of coronary angioplasty implant and graft; F17.200 Nicotine dependence, unspecified, uncomplicated; Z79.82 Long term (current) use of aspirin; Z79.899 Other long term (current) drug therapy
CPT/HCPCS: 36415; 43235; 71010; 80048; 80053; 84484; 85025; 85027; 85610; 86677; 86850; 86900; 86901; 93005; 96361; 96365; 96366; 99285; A9270; C9113; G0378; J2250; J3010; J7030; J7040; 00740; J2704

== ENCOUNTER → 2016-09-10 | Outpatient (CLI) | payer BC | LOC: MW.CHIM 11:51 | PROVIDERS: ATTEND Internal Medicine | DX: D64.9 Anemia, unspecified (principal) | CPT/HCPCS: 36415; 85025 ==

== ENCOUNTER 2017-08-10 15:00 | Emergency (ER) | payer BC ==
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
[2017-08-10 18:33] VITALS: BP 156/104
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
--- NOTE | 2017-08-11 13:31 | CR ---
EXAM DATE: 08/10/17 PATIENT'S AGE: 52 Patient: DAVID MANE Facility: [place], [place] Site . Site : 1965 Study: XRay Pelvis [id number]/25/[id number] 3:38:44 PM Ordering Physician: Norberto Guerra Final Report: Indication: Injury and pain Technique: Pelvis 1 view Comparison: None Findings: Bones: Alignment is normal. No fractures or bone lesions. Joint spaces: Unremarkable. Soft tissues: Unremarkable. Impression: No sign of acute injury. Dictated by Remy Kam MD @ 08/10/2017 3:52:17 PM Dictated by: Remy Kam MD @ 08/10/2017 15:52:24 (Electronic Signature) Report [facility]igned by Proxy. [facility]
== END 2017-08-10 16:45 | disposition home or self-care (01) ==
LOC: MW.ED 15:00
DX: S89.92XA Unspecified injury of left lower leg, initial encounter (principal); I10 Essential (primary) hypertension; Z72.0 Tobacco use; Z79.82 Long term (current) use of aspirin; Z79.899 Other long term (current) drug therapy; Z95.5 Presence of coronary angioplasty implant and graft; V86.52XA Driver of snowmobile injured in nontraffic accident, initial encounter
CPT/HCPCS: 72170; 72170-26; 73590-26-LT; 73590-LT; 93005; 99284; 99284-25

== ENCOUNTER 2021-04-14 13:39 | Emergency (ER) | payer BC ==
--- NOTE | 2021-04-14 15:48 | EDM.PDOC ---
ED HPI GENERAL MEDICAL PROBLEM - General Chief Complaint: Upper Extremity Injury/Pain Stated Complaint: RIGHT ELBOW SWOLLEN Time Seen by Provider: 04/14/21 15:15 Source of Information: Reports: Patient History Limitations: Reports: No Limitations - History of Present Illness INITIAL COMMENTS - FREE TEXT/NARRATIVE: HISTORY AND PHYSICAL: History of present illness: Patient is a 56-year-old male who presents emergency room today with concern of right elbow pain/swelling x2 weeks. Patient states he first noticed the pain and swelling 2 weeks ago when he woke up. Patient states that it has continued since then has not improved. Patient states that he did not injure the elbow or has no known inciting factors that he is aware of. Patient states that the pain is worse with complete extension or flexion of the elbow. Patient denies any redness or fevers. 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 Patient states that he has been unable to do this since the elbow swelling. Patient denies any other symptoms or concerns. Patient denies fever, chills, chest pain, shortness of breath, or cough. Denies headache, neck stiff ness, change in vision, syncope, or near syncope. Denies nausea, vomiting, abdominal pain, diarrhea, constipation, or dysuria. Has not noted any blood in urine or stool. Patient has been eating and drinking appropriately. Review of systems: As per history of present illness and below otherwise all systems reviewed and negative. Past medical history: As per history of present illness and as reviewed below otherwise noncontributory. Surgical history: As per history of present illness and as reviewed below otherwise noncontributory. Social history: See social history for further information Family history: As per history of present illness and as reviewed below otherwise noncontributory. Physical exam: General: Patient is alert, oriented, and in no acute distress. Patient sitting comfortably on exam table. Vitals stable and reviewed by me. HEENT: Atraumatic, normocephalic, pupils equal and reactive bilaterally, negative for conjunctival pallor or scleral icterus, mucous membranes moist, throat clear, neck supple, nontender, trachea midline. No drooling or trismus noted. No meningeal signs. No hot potato voice noted. Lungs: Clear to auscultation, breath sounds equal bilaterally, chest nontender. Heart: S1S2, regular rate and rhythm without overt murmur Abdomen: Soft, nondistended, nontender. Negative for masses or hepatosplenomegaly. Negative for costovertebral tenderness. Pelvis: Stable nontender. Genitourinary: Deferred. Rectal: Deferred. Skin: Intact, warm, dry. No lesions or rashes noted. Extremities: Patient does have edema at the right olecranon process consistent with olecranon bursitis with pain to palpation of this area. No increased warmth or redness of this area. Patient does have limited range of motion with complete extension and flexion of the affected elbow due to pain. Patient has full range of motion of the remainder right upper extremity. All compartments are soft of the right upper extremity with capillary refill less than 2 seconds. Radial pulses grossly intact of the right upper extremity. Otherwise, atraumatic, negative for cords or calf pain. Neurovascular unremarkable. Neuro: Awake, alert, oriented. Cranial nerves II through XII unremarkable. Cerebellum unremarkable. Motor and sensory unremarkable throughout. Exam nonfocal. Medical Decision Making: Signs and symptoms that were prompt return to the ED thoroughly discussed with patient. Discussed importance for follow-up with an orthopedic provider. Voices understanding and is agreeable to plan of care. Denies any further questions or concerns at this time. Diagnostics: Elbow x-ray, right Therapeutics: Shoulder sling Prescription: None Impression: Olecranon bursitis, right Plan: 1. Rest, ice, elevate the affected extremity. You can apply ice 15 minutes on, 15 minutes off. Use shoulder sling as needed. 2. Tylenol and/or Ibuprofen as directed for pain management or discomfort. 3. Follow up with the Orthopedic provider as discussed. Return to the ED as needed and as discussed. Definitive disposition and diagnosis as appropriate pending reevaluation and review of above. Right Elbow Pain Score (Numeric/FACES): 8 - Related Data Allergies Allergy/AdvReac Type Severity Reaction Status Date / Time No Known Allergies Allergy Verified 04/14/21 15:32 Home Meds: Home Meds Lisinopril 40 mg PO DAILY 09/03/16 [History] Metoprolol Succinate [Toprol XL] 25 mg PO DAILY 09/03/16 [History] Prasugrel HCl [Effient] 10 mg PO DAILY 09/03/16 [History] atorvaSTATin [Lipitor] 40 mg PO DAILY 09/03/16 [History] Aspirin [Halfprin] 81 mg PO DAILY 08/10/17 [History] Nitroglycerin [Nitrostat] 0.4 mg PO DAILY PRN 08/10/17 [History] Pantoprazole [ProTONIX Granules] 40 mg PO DAILY 08/10/17 [History] Past Medical History - Past Health History Medical/Surgical History: Denies Medical/Surgical History HEENT History: Reports: None Cardiovascular History: Reports: Angina, Hypertension, Stents, Syncope Respiratory History: Reports: None Gastrointestinal History: Reports: None Genitourinary History: Reports: None Musculoskeletal History: Reports: None Neurological History: Reports: None Psychiatric History: Reports: None Endocrine/Metabolic History: Reports: None Hematologic History: Reports: None Immunologic History: Reports: None Oncologic (Cancer) History: Reports: None Dermatologic History: Reports: None - Infectious Disease History Infectious Disease History: Reports: None - Past Surgical History Head Surgeries/Procedures: Reports: None HEENT Surgical History: Reports: None Cardiovascular Surgical History: Reports: None Respiratory Surgical History: Reports: None GI Surgical History: Reports: None Male Surgical History: Reports: None Endocrine Surgical History: Reports: None Neurological Surgical History: Reports: None Musculoskeletal Surgical History: Reports: Other (See Below) Other Musculoskeletal Surgeries/Procedures:: bicep repair Oncologic Surgical History: Reports: None Dermatological Surgical History: Reports: None - History Comment History Comment: Patient had biceps tendon repair on left and several other orthopedic surgeries in the past. Social & Family History - Family History Family Medical History: No Pertinent Family History - Tobacco Use Tobacco Use Status *Q: Never Tobacco User - Caffeine Use Caffeine Use: Reports: Coffee - Recreational Drug Use Recreational Drug Use: No Review of Systems - Review of Systems Review Of Systems: Comprehensive ROS is negative, except as noted in HPI. ED EXAM, GENERAL - Physical Exam Exam: See Below (See dictation) Course - Vital Signs Last Recorded V/S: Last Vital Signs Temp 97.6 F 04/14/21 15:33 Pulse 82 04/14/21 15:33 Resp 18 04/14/21 15:33 BP 167/98 H 04/14/21 15:33 Pulse Ox 97 04/14/21 15:33 - Orders/Labs/Meds Orders: Active Orders 24 hr Category Date Time Status DME for Discharge [COMM] Stat Oth 04/14/21 15:48 Ordered Departure - Departure Time of Disposition: 16:01 Disposition: Home, Self-Care 01 Clinical Impression: Olecranon bursitis of right elbow - Discharge Information Instructions: Elbow Bursitis, [id number] Referrals: Grant Krueger MD [Primary Care Provider] - Forms: ED Department Discharge Additional Instructions: The following information is given to patients seen in the emergency department who are being discharged to home. This information is to outline your options for follow-up care. We provide all patients seen in our emergency department with a follow-up referral. The need for follow-up, as well as the timing and circumstances, are variable depending upon the specifics of your emergency department visit. If you don't have a primary care physician on staff, we will provide you with a referral. We always advise you to contact your personal physician following an emergency department visit to inform them of the circumstance of the visit and for follow-up with them and/or the need for any referrals to a consulting specialist. The emergency department will also refer you to a specialist when appropriate. This referral assures that you have the opportunity for follow-up care with a specialist. All of these measure are taken in an effort to provide you with optimal care, which includes your follow-up. Under all circumstances we always encourage you to contact your private physician who remains a resource for coordinating your care. When calling for follow-up care, please make the office aware that this follow-up is from your recent emergency room visit. If for any reason you are refused follow-up, please contact the [facility] Emergency Department at and asked to speak to the emergency department charge nurse. [facility] - Orthopedic [facility] Professional Building [address] [place] [address], [address] [place] [address] Dr Salas, Orthopedist [facility] [address] [place] [address] Dr Thompson - Dr Lee - Dr [facility] [address] [place] [address] [facility] [address] [place] [address] 1. Rest, ice, elevate the affected extremity. You can apply ice 15 minutes on, 15 minutes off. Use shoulder sling as needed. 2. Tylenol and/or Ibuprofen as directed for pain management or discomfort. 3. Follow up with the Orthopedic provider as discussed. Return to the ED as needed and as discussed. Sepsis Event Note (ED) - Evaluation Sepsis Screening Result: No Definite Risk - Focused Exam Vital Signs: Vital Signs Temp Pulse Resp BP Pulse Ox 04/14/21 15:33 97.6 F 82 18 167/98 H 97 - My Orders Last 24 Hours: My Active Orders 04/14/21 15:48 DME for Discharge [COMM] Stat - Assessment/Plan Last 24 Hours: My Active Orders 04/14/21 15:48 DME for Discharge [COMM] Stat
--- NOTE | 2021-04-14 15:57 | CR ---
Indication: Pain. Possible bursitis. Technique: Three views of the right elbow. Comparison: None Findings: No acute fracture or subluxation is identified. Degenerative changes are identified. No joint effusion is identified. Impression: Degenerative change. No acute fracture. Dictated by Jessica Tierney MD @ 04/14/2021 3:55:46 PM (Electronically Signed)
[2021-04-14 16:12] VITALS: BP 140/90; PULSE 78
== END 2021-04-14 16:09 | disposition home or self-care (01) ==
LOC: MW.ED 13:39
DX: M70.21 Olecranon bursitis, right elbow (principal); I10 Essential (primary) hypertension; Z79.82 Long term (current) use of aspirin; Z79.899 Other long term (current) drug therapy
CPT/HCPCS: 73080-26-RT; 73080-RT; 99283-25

== ENCOUNTER 2024-10-02 14:09 | Observation (INO) | payer BC ==
[2024-10-02] MEDS: Aspirin 81 MG Tab.Chew PO ONE (14:24)
[2024-10-02 14:25] LABS: BASOPHILS ABSOLUTE AUTO 0.04 K/uL (0.00-0.20); BASOPHILS PERCENT AUTO 0.6 % (0.0-1.0); EOSINOPHILS ABSOLUTE AUTO 0.13 K/uL (0.00-0.45); EOSINOPHILS PERCENT AUTO 1.9 % (0.0-6.0); HEMATOCRIT 49.2 % (42.0-52.0); HEMOGLOBIN 17.1 g/dL (14.0-18.0); IMMATURE GRAN ABSOLUTE AUTO 0.02 K/uL (0.00-0.05); IMMATURE GRAN PERCENT AUTO 0.3 % (0.0-0.4); LYMPHOCYTES ABSOLUTE AUTO 1.39 K/uL (1.00-4.80); LYMPHOCYTES PERCENT AUTO 20.4 % (24.0-44.0); MEAN CORPUSCULAR HEMOGLOBIN 30.9 pg (28.0-32.0); MEAN CORPUSCULAR HGB CONC 34.8 g/dL (32.0-36.0); MEAN CORPUSCULAR VOLUME 88.8 fL (83.0-99.0); MEAN PLATELET VOLUME 9.7 fL (9.4-12.4); MONOCYTES PERCENT AUTO 8.8 % (0.0-8.0); NEUTROPHILS ABSOLUTE AUTO 4.63 K/uL (1.80-7.70); PLATELET COUNT,PLT 214 K/uL (150-400); RED BLOOD CELL COUNT 5.54 M/uL (4.52-5.90); WHITE BLOOD CELL COUNT,WBC 6.81 K/uL (3.9-11.3)
[2024-10-02] MEDS: Sodium Chloride 0.9% 10 ML Syringe FLUSH PRN (14:25)
[2024-10-02] MEDS: Sodium Chloride 0.9% 2.5 ML Syringe FLUSH PRN (14:25)
[2024-10-02 14:34] LABS: INR 1.03 (0.86-1.11)
[2024-10-02 14:57] LABS: A/G RATIO 1.1 (0.9-1.6); ALBUMIN 4.2 g/dL (3.4-5.0); CALCIUM 10.1 mg/dL (8.5-10.1); CARBON DIOXIDE,CO2 26.9 mmol/L (21.0-32.0); CREATININE 1.2 mg/dL (0.8-1.3); EST CRCL DRUG DOSING (CG) 70.95 mL/min; POTASSIUM,K 4.3 mmol/L (3.5-5.1); PROTEIN TOTAL,TP 8.1 g/dL (6.4-8.2)
[2024-10-02] MEDS: Iopamidol 755 MG/ML 500 ML Multipack Bottle IVPUSH STA (16:40)
[2024-10-02 17:49] LABS: AMPHETAMINES SCREEN, URINE NEGATIVE (CUTOFF=500); BARBITURATE SCREEN,URINE NEGATIVE (CUTOFF=200); BENZODIAZEPINES SCREEN,URINE NEGATIVE (CUTOFF=150); BUPRENORPHINE SCREEN,URINE NEGATIVE (CUTOFF=10); METHADONE SCREEN, URINE NEGATIVE (CUTOFF=200); METHAMPHETAMINES SCREEN, URINE NEGATIVE (CUTOFF=500); OXYCODONE SCREEN,URINE NEGATIVE (CUT0FF=100); PCP SCREEN,URINE NEGATIVE (CUTOFF=25); THC SCREEN,URINE 20 NG/ML NEGATIVE (CUTOFF=50)
[2024-10-02] MEDS ORDERED: Ondansetron 4 MG/2 ML SDV IVPUSH PRN (18:20)
[2024-10-02] MEDS ORDERED: Ondansetron 4 MG Tab.DIS PO PRN (18:20)
[2024-10-02] MEDS ORDERED: Acetaminophen 325 MG Tab PO PRN (18:20)
[2024-10-02] MEDS ORDERED: Polyethylene Glycol 3350 Powder 17 GM Packet PO PRN (18:20)
[2024-10-02] MEDS ORDERED: Docusate Sodium 100 MG Cap PO PRN (18:20)
[2024-10-02] MEDS: Metoprolol Tartrate 25 MG Tab PO ONE ×2 (18:32→20:08)
[2024-10-02] MEDS ORDERED: LORazepam 2 MG/ML SDV IVPUSH PRN (19:59)
[2024-10-02] MEDS: Losartan 50 MG Tab PO SCH (20:05)
[2024-10-02] MEDS: Magnesium Sulf/Wat 2 GM/50 mL 2 GM in Premix Bag 1 BAG IV ONE (20:11)
[2024-10-02] MEDS ORDERED: Nitroglycerin 0.4 MG Tab.SL SL PRN (20:28)
[2024-10-03 06:37] LABS: BASOPHILS ABSOLUTE AUTO 0.03 K/uL (0.00-0.20); BASOPHILS PERCENT AUTO 0.5 % (0.0-1.0); EOSINOPHILS ABSOLUTE AUTO 0.19 K/uL (0.00-0.45); EOSINOPHILS PERCENT AUTO 3.3 % (0.0-6.0); HEMATOCRIT 44.8 % (42.0-52.0); HEMOGLOBIN 15.9 g/dL (14.0-18.0); IMMATURE GRAN ABSOLUTE AUTO 0.02 K/uL (0.00-0.05); IMMATURE GRAN PERCENT AUTO 0.3 % (0.0-0.4); LYMPHOCYTES ABSOLUTE AUTO 1.23 K/uL (1.00-4.80); LYMPHOCYTES PERCENT AUTO 21.1 % (24.0-44.0); MEAN CORPUSCULAR HEMOGLOBIN 31.4 pg (28.0-32.0); MEAN CORPUSCULAR HGB CONC 35.5 g/dL (32.0-36.0); MEAN CORPUSCULAR VOLUME 88.4 fL (83.0-99.0); MEAN PLATELET VOLUME 9.4 fL (9.4-12.4); MONOCYTES ABSOLUTE AUTO 0.64 K/uL (0.00-0.80); NEUTROPHILS ABSOLUTE AUTO 3.72 K/uL (1.80-7.70); NEUTROPHILS PERCENT AUTO 63.8 % (41.0-71.0); PLATELET COUNT,PLT 194 K/uL (150-400); RED BLOOD CELL COUNT 5.07 M/uL (4.52-5.90); WHITE BLOOD CELL COUNT,WBC 5.83 K/uL (3.9-11.3)
[2024-10-03 07:07] LABS: A/G RATIO 0.9 (0.9-1.6); ALBUMIN 3.4 g/dL (3.4-5.0); BILIRUBIN TOTAL 1.5 mg/dL (0.2-1.0); CALCIUM 9.3 mg/dL (8.5-10.1); CARBON DIOXIDE,CO2 25.7 mmol/L (21.0-32.0); EST CRCL DRUG DOSING (CG) 85.14 mL/min; MAGNESIUM 2.2 mg/dL (1.8-2.4); POTASSIUM,K 4.3 mmol/L (3.5-5.1); PROTEIN TOTAL,TP 7.1 g/dL (6.4-8.2)
[2024-10-03 09:15] VITALS: BP 113/76; PULSE 74
[2024-10-03] MEDS: Metoprolol Tartrate 50 MG Tab PO SCH (09:15)
== END 2024-10-03 10:55 | disposition home or self-care (01) ==
LOC: MW.ED 14:09 → MW.MS 18:09
PROVIDERS: ADMIT Family Medicine; ATTEND Family Medicine
DX: R07.89 Other chest pain (principal); I10 Essential (primary) hypertension; K44.9 Diaphragmatic hernia without obstruction or gangrene; I25.2 Old myocardial infarction; E83.42 Hypomagnesemia; Z95.5 Presence of coronary angioplasty implant and graft; Z87.891 Personal history of nicotine dependence; Z79.899 Other long term (current) drug therapy
CPT/HCPCS: 36415; 71045; 71275; 80053; 80305; 83690; 83735; 83880; 84484; 85025; 85610; 93005; 99285; A9270; J3475; Q9967; 96374; 99284; G0378